=== PATIENT | male | born 1975 | race Caucasian/White ===

== ENCOUNTER → 2017-06-15 | Outpatient (CLI) | payer BC ==
[~2017-06-15] MED LIST: CARDIZEM30 MG PO; COLCHICINE0.6 MG PO; DAYPRO600 M1 PO; FLECAINIDE ACET50 M1 PO; INDOCIN50 MG PO; LISINOPRIL5 MG PO; MEDROL DOSEPAK4 MG PO; NKHM; ZANTAC150 MG PO
[2017-06-15 14:16] LABS: BODY FLUID RBC 12000 /uL; BODY FLUID WBC 6471 /uL
[2017-06-15 15:11] LABS: BF LYMPHOCYTES 1 %; BF MACROPHAGES 34 %; BF NEUTROPHILS 65 %
[2017-06-15 15:12] LABS: BODY FLUID TYPE SYNOVIAL
[2017-06-16 20:10] LABS: ACID FAST SPEC PROCESSING Concentration (.)
== END | disposition home or self-care (01) ==
LOC: LAB 13:26
PROVIDERS: Orthopaedic Surgery
DX: M25.462 Effusion, left knee (principal)

== ENCOUNTER 2019-08-03 11:29 | Emergency (ER) | payer BC ==
[~2019-08-03] VITALS: Ht 187.9 cm; Wt 190.5 kg
[2019-08-03 11:56] LABS: BASO # 0.1 10*3/uL (0.0-0.1); EOS # 0.3 10*3/uL (0.0-0.4); EOS % 2.9 % (1.0-4.0); HEMATOCRIT 53.5 % (42.0-52.0); LYMPH # 2.2 10*3/uL (1.3-4.4); LYMPH % 21.7 % (27.0-41.0); MEAN CELL VOLUME 89.5 fl (80.0-94.0); MEAN CORPUSCULAR HGB 30.1 pg (27.0-31.0); MEAN CORPUSCULAR HGB CONC 33.6 g/dl (33.0-37.0); MEAN PLATELET VOLUME 9.6 fl (9.6-12.3); MONO % 9.8 % (3.0-9.0); NEUT # 6.4 10*3/uL (2.3-7.9); PLATELET COUNT AUTOMATED 513 10*3/uL (130-400); RED BLOOD COUNT 5.98 10*6/uL (4.50-5.90); RED CELL DISTRI WIDTH 14.6 % (0-14.5); WHITE BLOOD COUNT 10.1 10*3/uL (4.8-10.8)
[2019-08-03] MEDS ORDERED: ALLOPURINOL300 MG PO (11:57)
[2019-08-03 12:04] LABS: ACT PARTIAL THROMBO TIME 30.6 SECONDS (20.0-32.1)
[2019-08-03 12:08] LABS: ALBUMIN 3.8 gm/dl (3.1-4.5); ALKALINE PHOSPHATASE 82 U/L (45-117); BUN 14 mg/dl (7-24); CHLORIDE 105 mmol/L (98-107); CREATININE 0.94 mg/dL (0.70-1.30); POTASSIUM 4.3 mmol/L (3.5-5.1); SGOT/AST 22 IU/L (3-35); SGPT/ALT 40 U/L (12-78); SODIUM 137 mmol/L (136-145); TOTAL PROTEIN 7.8 gm/dL (6.4-8.2)
== END 2019-08-03 13:30 | disposition home or self-care (01) ==
LOC: ED 11:29
PROVIDERS: Emergency Medicine
DX: R11.10 Vomiting, unspecified (principal); R20.2 Paresthesia of skin; R51 Headache; R79.1 Abnormal coagulation profile; I48.91 Unspecified atrial fibrillation; I10 Essential (primary) hypertension; M10.9 Gout, unspecified; Z79.899 Other long term (current) drug therapy

== ENCOUNTER → 2020-09-17 | Outpatient (CLI) | payer BC ==
[~2020-09-17] MED LIST changes: +ALLOPURINOL300 MG PO
== END | disposition home or self-care (01) ==
LOC: COVID19 12:14
PROVIDERS: ATTEND Family Medicine
DX: Z20.828 Contact with and (suspected) exposure to other viral communicable diseases (principal)

== ENCOUNTER 2020-12-07 12:43 | Emergency (ER) | payer BC ==
[~2020-12-07] VITALS: Ht 187.9 cm; Wt 213.2 kg
== END 2020-12-07 15:21 | disposition short-term general hospital (02) ==
LOC: ED 12:43
DX: M54.9 Dorsalgia, unspecified (principal); R53.1 Weakness; R20.0 Anesthesia of skin; I48.91 Unspecified atrial fibrillation; I10 Essential (primary) hypertension; Z79.899 Other long term (current) drug therapy; Z86.711 Personal history of pulmonary embolism; Z98.890 Other specified postprocedural states

== ENCOUNTER 2022-08-24 17:27 | Emergency (ER) | payer BC ==
[~2022-08-24] VITALS: Ht 190.5 cm; Wt 208.7 kg
[2022-08-24] MEDS ORDERED: CYCLOBENZAPRINE10 MG PO (17:56)
[2022-08-24] MEDS ORDERED: PREDNISONE50 MG PO (17:56)
[2022-08-24] MEDS ORDERED: PERCOCET 5-3251 EACH PO (17:56)
[2022-08-24 22:10] LABS: BASO # 0.1 10*3/uL (0.0-0.1); BASO % 0.9 % (0.0-1.0); EOS # 0.1 10*3/uL (0.0-0.4); EOS % 0.8 % (1.0-4.0); LYMPH # 1.1 10*3/uL (1.3-4.4); LYMPH % 10.8 % (27.0-41.0); MEAN CELL VOLUME 89.6 fl (80.0-94.0); MEAN CORPUSCULAR HGB 30.8 pg (27.0-31.0); MEAN CORPUSCULAR HGB CONC 34.4 g/dl (33.0-37.0); MEAN PLATELET VOLUME 9.3 fl (9.6-12.3); MONO # 0.2 10*3/uL (0.1-1.0); MONO % 1.7 % (3.0-9.0); NEUT # 8.5 10*3/uL (2.3-7.9); NEUT % 85.1 % (47.0-73.0); PLATELET COUNT AUTOMATED 580 10*3/uL (130-400); RED BLOOD COUNT 5.58 10*6/uL (4.50-5.90)
[2022-08-24 22:25] LABS: ALKALINE PHOSPHATASE 88 U/L (45-117); BUN 15 mg/dl (7-24); CHLORIDE 110 mmol/L (98-107); CREATININE 1.12 mg/dL (0.70-1.30); POTASSIUM 4.7 mmol/L (3.5-5.1); SGOT/AST 21 IU/L (3-35); SGPT/ALT 44 U/L (12-78); SODIUM 140 mmol/L (136-145); TOTAL PROTEIN 7.8 gm/dL (6.4-8.2)
[2022-08-25 00:23] LABS: BILIRUBIN Negative (Negative); BLOOD Negative (Negative); CLARITY Clear (Clear); COLOR Yellow (Yellow); GLUCOSE Negative (Negative); KETONE Trace (Negative); LEUKO ESTERASE Negative (Negative); NITRITE Negative (Negative); PH 5.5 (4.5-8.0); SPECIFIC GRAVITY 1.025 (1.001-1.030)
[2022-08-25 00:35] LABS: BACTERIA TRACE
== END 2022-08-24 18:24 | disposition short-term general hospital (02) ==
LOC: ED 17:27
PROVIDERS: Family Medicine
DX: M54.42 Lumbago with sciatica, left side (principal); Z79.899 Other long term (current) drug therapy

== ENCOUNTER 2022-09-11 09:08 | Inpatient (IN) | payer BC ==
[~2022-09-11] VITALS: Ht 190.5 cm; Wt 215.5 kg
[~2022-09-11 09:08] MED LIST changes: +CYCLOBENZAPRINE10 MG PO; +PERCOCET 5-3251 EACH PO; +PREDNISONE50 MG PO
[2022-09-11 09:13] VITALS: BP 122/54
[2022-09-11 09:41] LABS: HEMATOCRIT 44.7 % (42.0-52.0); MEAN CELL VOLUME 89.8 fl (80.0-94.0); MEAN CORPUSCULAR HGB 30.3 pg (27.0-31.0); MEAN CORPUSCULAR HGB CONC 33.8 g/dl (33.0-37.0); MEAN PLATELET VOLUME 9.2 fl (9.6-12.3); PLATELET COUNT AUTOMATED 378 10*3/uL (130-400); RED BLOOD COUNT 4.98 10*6/uL (4.50-5.90); RED CELL DISTRI WIDTH 15.7 % (0-14.5); WHITE BLOOD COUNT 8.7 10*3/uL (4.8-10.8)
[2022-09-11 09:42] LABS: MANUAL DIFF REFLEX YES
[2022-09-11 09:52] LABS: ACT PARTIAL THROMBO TIME 33.7 SECONDS (20.0-32.1); INTERNATIONAL NORM RATIO 1.1 (2.0-3.5)
[2022-09-11 10:00] LABS: ALKALINE PHOSPHATASE 84 U/L (45-117); BUN 20 mg/dl (7-24); CHLORIDE 105 mmol/L (98-107); LIPASE 269 U/L (73-393); POTASSIUM 3.8 mmol/L (3.5-5.1); SGOT/AST 18 IU/L (3-35); SGPT/ALT 30 U/L (12-78); SODIUM 135 mmol/L (136-145); TOTAL PROTEIN 6.9 gm/dL (6.4-8.2)
[2022-09-11 10:02] LABS: OVALOCYTES FEW; POLYCHROMASIA SLIGHT; TOTAL CELLS COUNTED 100 #CELLS; TOXIC GRANULATION SLIGHT
[2022-09-11 10:03] LABS: PLATELET SUFFICIENCY NORMAL (NORMAL)
[2022-09-11] MEDS ORDERED: Smz-Tmp Ds 800-160m PO (14:07)
[2022-09-11] MEDS ORDERED: DILTIAZEM HCL120 M2 PO (14:08)
[2022-09-11] MEDS ORDERED: MELOXICAM15 MG PO (14:10)
[2022-09-11] MEDS ORDERED: LISINOPRIL20 MG PO (14:10)
[2022-09-11 14:21] LABS: BILIRUBIN 2+ (Negative); BLOOD Negative (Negative); CLARITY Clear (Clear); COLOR Dark Yellow (Yellow); GLUCOSE Negative (Negative); KETONE Trace (Negative); LEUKO ESTERASE 2+ (Negative); NITRITE Positive (Negative); PH 5.5 (4.5-8.0); SPECIFIC GRAVITY 1.025 (1.001-1.030)
[2022-09-11 14:35] VITALS: BP 88/38
[2022-09-11 15:04] LABS: RBC 0-2 rbc/hpf (0-2)
[2022-09-11 15:05] LABS: BACTERIA 2+
[2022-09-11 15:15] VITALS: BP 120/48
[2022-09-11 20:00] VITALS: BP 126/61
[2022-09-12] VITALS: BP 112/55
[2022-09-12 06:32] LABS: HEMATOCRIT 43.9 % (42.0-52.0); MEAN CELL VOLUME 91.6 fl (80.0-94.0); MEAN CORPUSCULAR HGB 30.9 pg (27.0-31.0); MEAN CORPUSCULAR HGB CONC 33.7 g/dl (33.0-37.0); MEAN PLATELET VOLUME 9.5 fl (9.6-12.3); PLATELET COUNT AUTOMATED 382 10*3/uL (130-400); RED BLOOD COUNT 4.79 10*6/uL (4.50-5.90); RED CELL DISTRI WIDTH 15.6 % (0-14.5); WHITE BLOOD COUNT 5.6 10*3/uL (4.8-10.8)
[2022-09-12 06:39] LABS: MANUAL DIFF REFLEX YES
[2022-09-12 06:44] LABS: ALKALINE PHOSPHATASE 103 U/L (45-117); BUN 18 mg/dl (7-24); CHLORIDE 106 mmol/L (98-107); CREATININE 1.31 mg/dL (0.70-1.30); POTASSIUM 4.2 mmol/L (3.5-5.1); SGOT/AST 36 IU/L (3-35); SGPT/ALT 52 U/L (12-78); SODIUM 138 mmol/L (136-145); TOTAL PROTEIN 6.6 gm/dL (6.4-8.2)
[2022-09-12 07:25] LABS: TOTAL CELLS COUNTED 100 #CELLS
[2022-09-12 07:26] LABS: PLATELET SUFFICIENCY NORMAL (NORMAL)
[2022-09-12 08:00] VITALS: BP 103/48
[2022-09-12 12:00] VITALS: BP 114/61
[2022-09-12 16:00] VITALS: BP 130/70
[2022-09-12 20:00] VITALS: BP 132/67
[2022-09-13] VITALS: BP 126/64
[2022-09-13 06:41] LABS: BASO # 0.1 10*3/uL (0.0-0.1); BASO % 1.4 % (0.0-1.0); EOS # 0.2 10*3/uL (0.0-0.4); EOS % 4.1 % (1.0-4.0); HEMATOCRIT 44.2 % (42.0-52.0); LYMPH # 1.3 10*3/uL (1.3-4.4); LYMPH % 23.8 % (27.0-41.0); MEAN CELL VOLUME 92.1 fl (80.0-94.0); MEAN CORPUSCULAR HGB 30.8 pg (27.0-31.0); MEAN CORPUSCULAR HGB CONC 33.5 g/dl (33.0-37.0); MEAN PLATELET VOLUME 9.3 fl (9.6-12.3); MONO # 0.9 10*3/uL (0.1-1.0); MONO % 15.1 % (3.0-9.0); NEUT % 53.1 % (47.0-73.0); PLATELET COUNT AUTOMATED 408 10*3/uL (130-400); RED CELL DISTRI WIDTH 15.6 % (0-14.5); WHITE BLOOD COUNT 5.6 10*3/uL (4.8-10.8)
[2022-09-13 06:48] LABS: ALKALINE PHOSPHATASE 104 U/L (45-117); BUN 15 mg/dl (7-24); CHLORIDE 109 mmol/L (98-107); POTASSIUM 4.9 mmol/L (3.5-5.1); SGOT/AST 35 IU/L (3-35); SGPT/ALT 54 U/L (12-78); SODIUM 140 mmol/L (136-145); TOTAL PROTEIN 6.7 gm/dL (6.4-8.2)
[2022-09-13 08:00] VITALS: BP 132/63
[2022-09-13 12:00] VITALS: BP 127/65
[2022-09-13] MEDS ORDERED: OMNICEF300 MG PO (13:09)
== END 2022-09-13 14:05 | disposition home or self-care (01) | DRG 871 ==
LOC: ED 09:08 → EDHOLD 14:15 → 4E 14:15 → EDHOLD 14:18 → 4E 14:39
PROVIDERS: Emergency Medicine; Internal Medicine; Student in an Organized Health Care Education/Training Program; ADMIT Internal Medicine; ATTEND Internal Medicine
DX: A41.9 Sepsis, unspecified organism (principal); N17.0 Acute kidney failure with tubular necrosis; E44.0 Moderate protein-calorie malnutrition; N30.00 Acute cystitis without hematuria; Z68.43 Body mass index [BMI] 50.0-59.9, adult; I48.91 Unspecified atrial fibrillation; R65.20 Severe sepsis without septic shock; M51.26 Other intervertebral disc displacement, lumbar region; R73.9 Hyperglycemia, unspecified; I48.0 Paroxysmal atrial fibrillation; I10 Essential (primary) hypertension; M1A.9XX0 Chronic gout, unspecified, without tophus (tophi); Z86.711 Personal history of pulmonary embolism; Z80.0 Family history of malignant neoplasm of digestive organs

== ENCOUNTER 2023-11-07 19:55 | Emergency (ER) | payer OTHER, BC ==
[~2023-11-07 19:55] MED LIST changes: +DILTIAZEM HCL120 M2 PO; +LISINOPRIL20 MG PO; +MELOXICAM15 MG PO; +OMNICEF300 MG PO; +Smz-Tmp Ds 800-160m PO
== END 2023-11-07 21:44 | disposition home or self-care (01) ==
LOC: ED 19:55
DX: S81.012A Laceration without foreign body, left knee, initial encounter (principal); R51.9 Headache, unspecified; M79.641 Pain in right hand; Z79.2 Long term (current) use of antibiotics; Z79.899 Other long term (current) drug therapy; Z90.89 Acquired absence of other organs; W18.09XA Striking against other object with subsequent fall, initial encounter; Y93.89 Activity, other specified; Y92.89 Other specified places as the place of occurrence of the external cause; Y99.0 Civilian activity done for income or pay

== ENCOUNTER 2023-11-21 10:35 | Emergency (ER) | payer BC ==
[~2023-11-21] VITALS: Ht 187.9 cm; Wt 142.0 kg
[2023-11-21 11:14] LABS: BASO # 0.1 10*3/uL (0.0-0.1); BASO % 0.9 % (0.0-1.0); EOS # 0.1 10*3/uL (0.0-0.4); EOS % 0.9 % (1.0-4.0); HEMATOCRIT 54.9 % (42.0-52.0); LYMPH # 1.1 10*3/uL (1.3-4.4); LYMPH % 10.7 % (27.0-41.0); MEAN CELL VOLUME 90.3 fl (80.0-94.0); MEAN CORPUSCULAR HGB 28.6 pg (27.0-31.0); MEAN CORPUSCULAR HGB CONC 31.7 g/dl (33.0-37.0); MEAN PLATELET VOLUME 9.4 fl (9.6-12.3); MONO # 0.6 10*3/uL (0.1-1.0); NEUT # 8.3 10*3/uL (2.3-7.9); NEUT % 81.1 % (47.0-73.0); PLATELET COUNT AUTOMATED 544 10*3/uL (130-400); RED BLOOD COUNT 6.08 10*6/uL (4.50-5.90); RED CELL DISTRI WIDTH 16.2 % (0-14.5); WHITE BLOOD COUNT 10.3 10*3/uL (4.8-10.8)
[2023-11-21 11:27] LABS: BILIRUBIN Negative (Negative); BLOOD 3+ (Negative); CLARITY Clear (Clear); COLOR Yellow (Yellow); GLUCOSE Negative (Negative); KETONE Trace (Negative); LEUKO ESTERASE 2+ (Negative); NITRITE Negative (Negative); PH 5.5 (4.5-8.0); SPECIFIC GRAVITY 1.015 (1.001-1.030)
[2023-11-21 11:38] LABS: ALKALINE PHOSPHATASE 98 U/L (46-116); BUN 8 mg/dl (9-23); CHLORIDE 109 mmol/L (98-107); LIPASE 40 U/L (12-53); POTASSIUM 4.2 mmol/L (3.4-5.1); SGPT/ALT 24 U/L (5-49); TOTAL PROTEIN 7.5 gm/dL (6.0-8.0)
[2023-11-21 11:40] LABS: BACTERIA 1+; MUCOUS 1+; RBC TNTC rbc/hpf (0-2); WBC 31-40 wbc/hpf (0-5)
[2023-11-21] MEDS ORDERED: HYDROCODONE-AC1 EACH PO (12:52)
[2023-11-21] MEDS ORDERED: MACROBID100 M1 PO (12:52)
[2023-11-21] MEDS ORDERED: FLOMAX0.4 MG PO (12:52)
[2023-11-21] MEDS ORDERED: ONDANSETRON4 MG SL (12:53)
== END 2023-11-21 13:07 | disposition home or self-care (01) ==
LOC: ED 10:35
PROVIDERS: Nurse Practitioner Family
DX: N20.0 Calculus of kidney (principal); N39.0 Urinary tract infection, site not specified; R11.2 Nausea with vomiting, unspecified; I10 Essential (primary) hypertension; I48.91 Unspecified atrial fibrillation; M10.9 Gout, unspecified; Z98.890 Other specified postprocedural states

== ENCOUNTER 2024-05-29 14:00 | Emergency (ER) | payer BC ==
[~2024-05-29] VITALS: Ht 190.5 cm; Wt 119.7 kg
[~2024-05-29 14:00] MED LIST changes: +FLOMAX0.4 MG PO; +HYDROCODONE-AC1 EACH PO; +MACROBID100 M1 PO; +ONDANSETRON4 MG SL
[2024-05-29 14:20] LABS: BASO # 0.1 10*3/uL (0.0-0.1); BASO % 1.6 % (0.0-1.0); EOS # 0.2 10*3/uL (0.0-0.4); EOS % 2.2 % (1.0-4.0); HEMATOCRIT 54.7 % (42.0-52.0); LYMPH # 2.1 10*3/uL (1.3-4.4); LYMPH % 23.8 % (27.0-41.0); MEAN CELL VOLUME 90.1 fl (80.0-94.0); MEAN CORPUSCULAR HGB 29.2 pg (27.0-31.0); MEAN CORPUSCULAR HGB CONC 32.4 g/dl (33.0-37.0); MEAN PLATELET VOLUME 9.4 fl (9.6-12.3); MONO # 0.6 10*3/uL (0.1-1.0); MONO % 7.3 % (3.0-9.0); NEUT # 5.7 10*3/uL (2.3-7.9); NEUT % 64.9 % (47.0-73.0); PLATELET COUNT AUTOMATED 598 10*3/uL (130-400); RED BLOOD COUNT 6.07 10*6/uL (4.50-5.90); RED CELL DISTRI WIDTH 14.6 % (0-14.5); WHITE BLOOD COUNT 8.8 10*3/uL (4.8-10.8)
[2024-05-29 14:31] LABS: ACT PARTIAL THROMBO TIME 34.7 SECONDS (20.0-32.1)
[2024-05-29 14:39] LABS: ALKALINE PHOSPHATASE 90 U/L (46-116); BUN 10 mg/dl (9-23); CHLORIDE 103 mmol/L (98-107); POTASSIUM 4.3 mmol/L (3.4-5.1); SGPT/ALT 18 U/L (5-49); TOTAL PROTEIN 7.9 gm/dL (6.0-8.0)
[2024-05-29] MEDS ORDERED: MULTI-VITAMIN1 EACH PO (15:25)
== END 2024-05-29 16:47 | disposition home or self-care (01) ==
LOC: ED 14:00
PROVIDERS: Internal Medicine
DX: R07.89 Other chest pain (principal); I10 Essential (primary) hypertension; I48.91 Unspecified atrial fibrillation; M10.9 Gout, unspecified; Z98.890 Other specified postprocedural states; Z53.29 Procedure and treatment not carried out because of patient's decision for other reasons

== ENCOUNTER 2024-08-19 12:10 | Emergency (ER) | payer OTHER, BC ==
[~2024-08-19] VITALS: Ht 190.5 cm; Wt 113.4 kg
[~2024-08-19 12:10] MED LIST changes: +MULTI-VITAMIN1 EACH PO
== END 2024-08-19 14:02 | disposition home or self-care (01) ==
LOC: ED 12:10
DX: M25.512 Pain in left shoulder (principal); I10 Essential (primary) hypertension; I48.91 Unspecified atrial fibrillation; M10.9 Gout, unspecified; Z98.890 Other specified postprocedural states